=== PATIENT | female | born 1985 ===

== ENCOUNTER 2024-08-05 10:26 | Day surgery (SDC) | payer OTHER ==
[~2024-08-05 10:26] MED LIST: ALTAVERA PO; ZYRTEC10 M3 PO
[2024-08-05] MEDS ORDERED: POVIDONE-IODINE 118 ML BOTT TOP ONE (15:45)
[2024-08-05] MEDS ORDERED: KETOROLAC TROMETHAMINE 30 MG VIAL IV STA (16:42)
[2024-08-05] MEDS ORDERED: KETOROLAC TROMETHAMINE 30 MG VIAL ONE (18:41)
== END 2024-08-05 22:05 | disposition home or self-care (01) ==
LOC: CIR.AMB 10:26
PROVIDERS: ATTEND Obstetrics & Gynecology
DX: D25.1 Intramural leiomyoma of uterus (principal); N93.8 Other specified abnormal uterine and vaginal bleeding; D25.0 Submucous leiomyoma of uterus; Z91.013 Allergy to seafood; Z88.8 Allergy status to other drugs, medicaments and biological substances